=== PATIENT | female | born 1930 | race Caucasian/White ===

== ENCOUNTER 2016-08-21 15:12 | Emergency (ER) | payer MEDICARE ==
--- NOTE | 2016-08-21 16:42 | ED ORDER SUMMARY ---
..... Patient: IVIS LUCERO OrderSheet [facility] VisitID: [id number] [place] [address] 85y, F Registration Date/Time: 08/21/2016 ORDER SHEET Weight: 68.0 kg (stated) Allergies: Nitrofurantoin, Codeine, Demerol, Oxycodone, Penicillin, Sulfa Antibiotics GENERAL ORDERS: Suture Set-up: (16:04 08/21/2016 HBivens A.R.N.P.) (17:00 ASchmuck) Dress Wounds (16:04 08/21/2016 HBivens A.R.N.P.) (17:00 ASchmuck) MEDICATION ORDERS: Tdap IM 0.5 mL (NOW, per protocol) (15:43 08/21/2016 ASchmuck per protocol) (15:48 ASchmuck) Lidocaine Injection 1% plain (NOW) (16:04 08/21/2016 HBivens A.R.N.P.) (Ack 16:15 ASchmuck) (16:33 ASchmuck) IV FLUIDS: ORDER SHEET NOTES: [Electronically signed by Rosalba Medina (19:12 08/21/2016)] [Electronically signed by Netta Barry A.R.N.P. (20:45 08/21/2016)] [Electronically locked/signed by Rosalba Medina (19:12 08/21/2016)]
--- NOTE | 2016-08-21 16:42 | ED CLINICAL REPORT ---
Clinical Report - Physicians/Mid Levels [facility] [address] [place] [address] 08/21/2016 15:13 Patient: IVIS LUCERO Time Seen: 15:46; initial patient contact, initial documentation, patient care assumed. Arrived- By ambulance. Historian- patient. HISTORY OF PRESENT ILLNESS Chief Complaint: Injury to left leg. The injury happened just prior to arrival. Occurred at home. The patient sustained a laceration from a sharp edge (has cast iron or steel cat statue, hit leg on cat's ear, cutting leg). Patient is experiencing mild pain. Patient denies injury to the head or neck. No other injury. REVIEW OF SYSTEMS The patient sustained a laceration. No swelling, tingling, weakness, numbness or suspected foreign body. She has no pain on weight bearing. All systems otherwise negative, except as recorded above. PAST HISTORY See nurses notes. ( PROBLEMS: Hypercholesterolemia. Diabetic neuropathy. Degenerative Joint Disease. Mild cognitive disorder. Acquired hypothyroidism. Hyperthyroidism. Fall. Hyperlipidemia. Enuresis. Diabetes Mellitus Type 2. Hypertension. Parkinson's Disease. --15:27 Rosalba Medina. ADDITIONAL SURGERIES: Appendectomy. Cataract Surgery. --15:27 Rosalba Medina.). SOCIAL HISTORY Never smoker. Occasional alcohol use. No drug use. No recent travel. Is a local resident. Resides in an assisted living center. FAMILY HISTORY No significant family medical history. ADDITIONAL NOTES The nursing notes have been reviewed with agreement regarding the chief complaint, HPI, ROS, PMH and patient medications and allergies. PHYSICAL EXAM Vital Signs: 08/21/2016 15:29 BP: 143/85. HR: 89. RR: 14. O2 saturation: 98%. Temp: 97.4 F. Have been reviewed as normal and appear to be correct. Appearance: Alert. Oriented X3. No acute distress. Head: Head atraumatic. Eyes: Pupils equal, round and reactive to light. Eyes normal inspection. Neck: Normal inspection. Neck supple. C-spine non-tender. Respiratory: No respiratory distress. Back: Normal inspection. No tenderness. ROM normal. Skin: Skin intact. Skin warm and dry. Normal skin color. Normal skin turgor. Extremities: Left leg: mild tenderness and subcutaneous laceration greater than 5.0 cm located in the lateral aspect of lower leg. SEE LACERATION PROCEDURE NOTE #1. Neurovascular intact distally. No erythema, swelling, abrasion, ecchymosis or puncture wound. No foreign body or deformity. No limitation of weight bearing. Lower extremity exam otherwise negative. Extremities otherwise negative. Neuro, Vascular and Tendons: Vascular status intact. Sensation intact. Motor intact. Tendon function intact. Gait: Normal gait. (pt walks with assistance). Neuro: Oriented X 3. No motor deficit. No sensory deficit. Note: isolated injury to lower leg. PROGRESS AND PROCEDURES Laceration Repair: Location: left leg. Length: 7 cm. Complexity: simple (local anesthesia used and sutured). Wound depth/shape- curved, subcutaneous and linear and involving fascia. Wound is clean. No contamination, foreign body or contused tissue present. No tissue loss. Distal neuro/vascular/tendon status normal. Tendon not examined. No tendon deficit or laceration or tendon injury. Local anesthesia provided using 1% lidocaine (4 mL). Prepped with Betadine. Wound explored, cleansed, irrigated and examined to the base in bloodless field with normal saline. Wound not debrided. No foreign material removed. Closure of skin: interrupted 4-0 nylon (10 sutures). Post-procedure: she is stable and there are no complications. Bleeding is controlled and neuro-vascular status is intact distal to the wound. Clean dressing applied. (per nursing staff, see other notes). Tetanus immunization given. Estimated blood loss: 10 mL. Patient and family counseled in person regarding the patient's stable condition and diagnosis. Differential Diagnosis: Other possible considerations: leg lac, fb, skin avulsion, fx. Above considerations are based on history, physical exam and reassessment. Differential diagnosis was discussed with patient. Disposition: Discharged home in good and improved condition (16:42). Condition: good and stable. CLINICAL IMPRESSION Single deep laceration to the left lower leg.Treatment of laceration not delayed. No infection or foreign body present. INSTRUCTIONS Protect wound and keep wound area clean. Soak in warm soapy water twice daily. Apply neosporin twice daily. Sutures should be removed in twelve days. Warnings: TETANUS: You were given a tetanus shot during your visit. Make a note for future reference. GENERAL WARNINGS: Return or contact your physician immediately if your condition worsens or changes unexpectedly, if not improving as expected, or if other problems arise. Specifically return if problem worsens. Follow-up: Follow up with your doctor in about twelve days for suture removal and wound check. Call for an appointment. Summary of care provided to patient and family. Understanding of the discharge instructions verbalized by patient and family. (Electronically signed by Netta Barry A.R.N.P. 08/21/2016 20:45)
--- NOTE | 2016-08-21 16:42 | ED NURSING NOTES ---
Clinical Report - Nurses [facility] [address] [place] [address] 08/21/2016 15:13 Patient: IVIS LUCERO TRIAGE Triage time 15:Aug 21 2016. 15:11 08/21/16. --15:11 Rosalba Medina Acuity: LEVEL 4. Chief Complaint: INJURY TO THE LEFT LEG. 15:29 08/21/16. Alert. No acute distress. SEPSIS SCREEN: Sepsis Screen. Negative (no infection suspected/documented). RK COMA SCORE: Rk Coma Scale: 15- eyes open spontaneously (4); best verbal response- oriented x 4 (5); best motor response- obeys commands (6). --15:29 Rosalba Medina 15:29 08/21/16. BP: 143/85. HR: 89. RR: 14. O2 saturation: 98%. Temp: 97.4 F. Pain level now 10. --15:29 Rosalba Medina. Weight: 68 kg stated. Height/Length: 64 inches Per Patient. BMI: 25.8. --15:27 Rosalba Medina. Medications Carbidopa-Levodopa Oral 25/100 mg, 3x a day (also 1/2 of a 25/100 2xdaily. ER 25/100 tab at HS). --15:15 Rosalba Medina Amantadine HCl Oral 100 mg, daily. --15:15 Rosalba Medina AmLODIPine Besylate Oral 5 mg, daily. --15:15 Rosalba Medina Aspir-81 Oral. --15:15 Rosalba Medina Azilect Oral (Tablet 1 mg), daily. --15:16 Rosalba Medina Calcitonin ([place]) Nasal, daily. --15:16 Rosalba Medina Cranberry Oral. --15:16 Rosalba Medina Docusate Calcium Oral 100 mg, daily. --15:16 Rosalba Medina Glucosamine Oral (Capsule 500 mg) 3 capsules, daily. --15:17 Rosalba Medina Lantus Subcutaneous 7 units, 2x a day. --15:18 Rosalba Medina Levothyroxine Sodium Oral 75 mcg, daily. --15:18 Rosalba Medina Lisinopril Oral 20 mg, daily. --15:18 Rosalba Medina MetFORMIN HCl Oral (Tablet 1000 mg) 1 tablet, 2x a day. --15:18 Rosalba Medina Nystop External. --15:19 Rosalba Medina Polyethylene Glycol 3350 Oral. --15:19 Rosalba Medina Cetirizine HCl Oral 10 mg, at bedtime. --15:21 Rosalba Medina Tylenol Oral, PRN. --15:21 Rosalba Medina Antacid Oral. --15:21 Rosalba Medina Benzonatate Oral 100 mg, 3x a day as needed. --15:22 Rosalba Medina Bisac-Evac Rectal (Suppository 10 mg), daily as needed. --15:22 Rosalba Medina Loperamide HCl Oral. --15:22 Rosalba Medina. Medication/allergy information source: the patient's fpc record. --15:29 Rosalba Medina. Allergies Nitrofurantoin.(nausea, vomiting) (abd pain) --15:23 Rosalba Medina Codeine. ("makes ill") --15:23 Rosalba Medina Demerol.(hives) --15:23 Rosalba Medina Oxycodone.(nausea) --15:24 Rosabla Medina Penicillin.(hives) --15:24 Rosalba Medina Sulfa Antibiotics.(hives) --15:24 Rosalba Medina. History Arrived by EMS. Historian: EMS and patient. Primary physician (Ayde). This occurred just prior to arrival. The patient sustained a laceration. ( EMS reports that patient was walking and hit her leg against a porcelain figure. EMS placed dressing on lower leg. No LOC, no neck/back pain, no fall.). The patient has had trouble walking. No numbness, tingling, weakness, neck pain or back pain. Treatment ENVIRONMENTAL AIDE: See EMS report. PAST MEDICAL HX: Diabetes mellitus. Hypertension. Tetanus status: unknown. SOCIAL HX: Never smoker. Alcohol use; consumes one wine occasionally. No drug use. NUTRITIONAL RISK ASSESSMENT: The nutritional risk assessment revealed no deficiencies. FUNCTIONAL ASSESSMENT: Functional assessment: no impairments noted. LEARNING NEEDS ASSESSMENT: The learning needs assessment revealed no barriers. FALL RISK ASSESSMENT: Fall risk assessment completed. Risk factors identified include patient age greater than 65 years, history of fall and impairment of mobility. Fall interventions initiated. Patient placed on stretcher. Side rails up x2. Brakes on Bed in low position. Call light in reach of patient. Instructed not to get up without assistance. SKIN INTEGRITY ASSESSMENT: Skin integrity risk assessment completed. No skin integrity risk identified. --15:29 Rosalba Medina. PROBLEMS: Hypercholesterolemia. Diabetic neuropathy. Degenerative Joint Disease. Mild cognitive disorder. Acquired hypothyroidism. Hyperthyroidism. Fall. Hyperlipidemia. Enuresis. Diabetes Mellitus Type 2. Hypertension. Parkinson's Disease. --15:27 Rosalba Medina. ADDITIONAL SURGERIES: Appendectomy. Cataract Surgery. --15:27 Rosalba Medina. Assessment The patient states feels the same. --15:29 Rosalba Medina. Interventions ID band on patient. --15:29 Rosalba Medina. PHYSICAL ASSESSMENT 15:32 08/21/16. To room via stretcher. GENERAL / NEURO / PSYCH: Oriented X 4. Alert. Appears in no acute distress. EXTREMITIES: Bilateral 3+ edema of the lower extremities involving both feet, both ankles and both lower legs. pt reports this is normal. Capillary refill is less than 2 seconds in the extremities. Extremity pulses are within normal limits. Extremities exhibit normal ROM. Neuro-vascular status intact to the extremity. Left leg: tenderness and deep 5.0 cm laceration with controlled bleeding. SKIN: Skin is warm and dry. Single laceration. --15:32 Rosalba Medina. NURSING PROGRESS NOTES 15:32 08/21/16. The plan of care for this patient has been created. Cold pack applied. Extremity elevated. Neuro-vascular extremity check. Reassurance given. Two patient identifiers checked. Call light placed in reach. Side rails up x 2. Bed placed in lowest position. Brakes of bed on. Patient ready for evaluation- chart flagged and ED physician and DUTY ENGINEER notified. --15:32 Rosalba Medina 15:48 08/21/2016 TDAP IM 0.5 mL given. (Lot#: [id number], expiration date: 07/28/2018, Fastener Technologist: sanofi pasteur). Given in the right deltoid. Allergies verified and confirmed 5 rights. Vaccine information statement provided to the patient. --15:48 Rosalba Medina 16:18 08/21/2016 Lidocaine Injection Injectable 1 % given. (given to DUTY ENGINEER). --16:33 Rosalba Medina Applied bulky dressing consisting of 4x4 gauze, following the application of antibiotic ointment (bacitracin). Secured with kerlix. --17:01 Rosalba Medina. DISPOSITION / DISCHARGE 17:08/21/16. Departure time: 17:Aug 21 2016. Condition at departure: improved. The goals identified in the patient's plan of care were met. No learning barriers present. Discharge instructions provided and reviewed with the patient and family. Reviewed warnings (Family verbalized awareness of warning s/sx listed in dc paperwork). Treatments reviewed. Reviewed referral to a primary care physician for followup. Patient verbalized understanding. Written instructions provided in Swedish. The patient was discharged by the nurse practitioner. She was discharged home and accompanied by family. She left the Emergency Department in a wheelchair and via private vehicle. Family member driving. FALL RISK ASSESSMENT: Fall risk assessment completed. No fall risk identified. --17:02 Rosalba Medina 17:01 08/21/16. BP: 138/60. HR: 94. RR: 15. O2 saturation: 99%. Temp: 97.4 F. Pain level now: 0/10. --17:02 Rosalba Medina. Locked/Released at 08/21/2016 19:12 by Rosalba Medina,
--- NOTE | 2016-08-21 16:42 | ED NURSING NOTES ---
Clinical Report - Nurses [facility] [address] [place] [address] 08/21/2016 15:13 Patient: IVIS LUCERO TRIAGE Triage time 15:Aug 21 2016. 15:11 08/21/16. --15:11 Rosalba Medina Acuity: LEVEL 4. Chief Complaint: INJURY TO THE LEFT LEG. 15:29 08/21/16. Alert. No acute distress. SEPSIS SCREEN: Sepsis Screen. Negative (no infection suspected/documented). RK COMA SCORE: Rk Coma Scale: 15- eyes open spontaneously (4); best verbal response- oriented x 4 (5); best motor response- obeys commands (6). --15:29 Rosalba Medina 15:29 08/21/16. BP: 143/85. HR: 89. RR: 14. O2 saturation: 98%. Temp: 97.4 F. Pain level now 10. --15:29 Rosalba Medina. Weight: 68 kg stated. Height/Length: 64 inches Per Patient. BMI: 25.8. --15:27 Rosalba Medina. Medications Carbidopa-Levodopa Oral 25/100 mg, 3x a day (also 1/2 of a 25/100 2xdaily. ER 25/100 tab at HS). --15:15 Rosalba Medina Amantadine HCl Oral 100 mg, daily. --15:15 Rosalba Medina AmLODIPine Besylate Oral 5 mg, daily. --15:15 Rosalba Medina Aspir-81 Oral. --15:15 Rosalba Medina Azilect Oral (Tablet 1 mg), daily. --15:16 Rosalba Medina Calcitonin ([place]) Nasal, daily. --15:16 Rosalba Medina Cranberry Oral. --15:16 Rosalba Mdeina Docusate Calcium Oral 100 mg, daily. --15:16 Rosalba Medina Glucosamine Oral (Capsule 500 mg) 3 capsules, daily. --15:17 Rosalba Medina Lantus Subcutaneous 7 units, 2x a day. --15:18 Rosalba Medina Levothyroxine Sodium Oral 75 mcg, daily. --15:18 Rosalba Medina Lisinopril Oral 20 mg, daily. --15:18 Rosalba Medina MetFORMIN HCl Oral (Tablet 1000 mg) 1 tablet, 2x a day. --15:18 Rosalba Medina Nystop External. --15:19 Rosalba Medina Polyethylene Glycol 3350 Oral. --15:19 Rosalba Medina Cetirizine HCl Oral 10 mg, at bedtime. --15:21 Rosalba Medina Tylenol Oral, PRN. --15:21 Rosalba Medina Antacid Oral. --15:21 Rosalba Medina Benzonatate Oral 100 mg, 3x a day as needed. --15:22 Rosalba Medina Bisac-Evac Rectal (Suppository 10 mg), daily as needed. --15:22 Rosalba Medina Loperamide HCl Oral. --15:22 Rosalba Medina. Medication/allergy information source: the patient's senior living record. --15:29 Rosalba Medina. Allergies Nitrofurantoin.(nausea, vomiting) (abd pain) --15:23 Rosalba Medina Codeine. ("makes ill") --15:23 Rosalba Medina Demerol.(hives) --15:23 Rosalba Medina Oxycodone.(nausea) --15:24 Rosalba Medina Penicillin.(hives) --15:24 Rosalba Medina Sulfa Antibiotics.(hives) --15:24 Rosalba Medina. History Arrived by EMS. Historian: EMS and patient. Primary physician (Ayde). This occurred just prior to arrival. The patient sustained a laceration. ( EMS reports that patient was walking and hit her leg against a porcelain figure. EMS placed dressing on lower leg. No LOC, no neck/back pain, no fall.). The patient has had trouble walking. No numbness, tingling, weakness, neck pain or back pain. Treatment AUTO HAULER: See EMS report. PAST MEDICAL HX: Diabetes mellitus. Hypertension. Tetanus status: unknown. SOCIAL HX: Never smoker. Alcohol use; consumes one wine occasionally. No drug use. NUTRITIONAL RISK ASSESSMENT: The nutritional risk assessment revealed no deficiencies. FUNCTIONAL ASSESSMENT: Functional assessment: no impairments noted. LEARNING NEEDS ASSESSMENT: The learning needs assessment revealed no barriers. FALL RISK ASSESSMENT: Fall risk assessment completed. Risk factors identified include patient age greater than 65 years, history of fall and impairment of mobility. Fall interventions initiated. Patient placed on stretcher. Side rails up x2. Brakes on Bed in low position. Call light in reach of patient. Instructed not to get up without assistance. SKIN INTEGRITY ASSESSMENT: Skin integrity risk assessment completed. No skin integrity risk identified. --15:29 Rosalba Medina. PROBLEMS: Hypercholesterolemia. Diabetic neuropathy. Degenerative Joint Disease. Mild cognitive disorder. Acquired hypothyroidism. Hyperthyroidism. Fall. Hyperlipidemia. Enuresis. Diabetes Mellitus Type 2. Hypertension. Parkinson's Disease. --15:27 Rosalba Medina. ADDITIONAL SURGERIES: Appendectomy. Cataract Surgery. --15:27 Rosalba Medina. Assessment The patient states feels the same. --15:29 Rosalba Medina. Interventions ID band on patient. --15:29 Rosalba Medina. PHYSICAL ASSESSMENT 15:32 08/21/16. To room via stretcher. GENERAL / NEURO / PSYCH: Oriented X 4. Alert. Appears in no acute distress. EXTREMITIES: Bilateral 3+ edema of the lower extremities involving both feet, both ankles and both lower legs. pt reports this is normal. Capillary refill is less than 2 seconds in the extremities. Extremity pulses are within normal limits. Extremities exhibit normal ROM. Neuro-vascular status intact to the extremity. Left leg: tenderness and deep 5.0 cm laceration with controlled bleeding. SKIN: Skin is warm and dry. Single laceration. --15:32 Rosalba Medina. NURSING PROGRESS NOTES 15:32 08/21/16. The plan of care for this patient has been created. Cold pack applied. Extremity elevated. Neuro-vascular extremity check. Reassurance given. Two patient identifiers checked. Call light placed in reach. Side rails up x 2. Bed placed in lowest position. Brakes of bed on. Patient ready for evaluation- chart flagged and ED physician and JUNIOR SYSTEMS ADMINISTRATOR notified. --15:32 Rosalba Medina 15:48 08/21/2016 TDAP IM 0.5 mL given. (Lot#: [id number], expiration date: 07/28/2018, Coal Trimmer: sanofi pasteur). Given in the right deltoid. Allergies verified and confirmed 5 rights. Vaccine information statement provided to the patient. --15:48 Rosalba Medina 16:18 08/21/2016 Lidocaine Injection Injectable 1 % given. (given to JUNIOR SYSTEMS ADMINISTRATOR). --16:33 Rosalba Medina Applied bulky dressing consisting of 4x4 gauze, following the application of antibiotic ointment (bacitracin). Secured with kerlix. --17:01 Rosalba Medina. DISPOSITION / DISCHARGE 17:08/21/16. Departure time: 17:Aug 21 2016. Condition at departure: improved. The goals identified in the patient's plan of care were met. No learning barriers present. Discharge instructions provided and reviewed with the patient and family. Reviewed warnings (Family verbalized awareness of warning s/sx listed in dc paperwork). Treatments reviewed. Reviewed referral to a primary care physician for followup. Patient verbalized understanding. Written instructions provided in Indonesian. The patient was discharged by the nurse practitioner. She was discharged home and accompanied by family. She left the Emergency Department in a wheelchair and via private vehicle. Family member driving. FALL RISK ASSESSMENT: Fall risk assessment completed. No fall risk identified. --17:02 Rosalba Medina 17:01 08/21/16. BP: 138/60. HR: 94. RR: 15. O2 saturation: 99%. Temp: 97.4 F. Pain level now: 0/10. --17:02 Rosalba Medina. Locked/Released at 08/21/2016 19:12 by Rosalba Medina,
--- NOTE | 2016-08-21 16:42 | ED ORDER SUMMARY ---
..... Patient: IVIS LUCERO OrderSheet [facility] VisitID: [id number] [place] [address] 85y, F Registration Date/Time: 08/21/2016 ORDER SHEET Weight: 68.0 kg (stated) Allergies: Nitrofurantoin, Codeine, Demerol, Oxycodone, Penicillin, Sulfa Antibiotics GENERAL ORDERS: Suture Set-up: (16:04 08/21/2016 HBivens A.R.N.P.) (17:00 ASchmuck) Dress Wounds (16:04 08/21/2016 HBivens A.R.N.P.) (17:00 ASchmuck) MEDICATION ORDERS: Tdap IM 0.5 mL (NOW, per protocol) (15:43 08/21/2016 ASchmuck per protocol) (15:48 ASchmuck) Lidocaine Injection 1% plain (NOW) (16:04 08/21/2016 HBivens A.R.N.P.) (Ack 16:15 ASchmuck) (16:33 ASchmuck) IV FLUIDS: ORDER SHEET NOTES: [Electronically signed by Rosalba Medina (19:12 08/21/2016)] [Electronically signed by Netta Barry A.R.N.P. (20:45 08/21/2016)] [Electronically locked/signed by Rosalba Medina (19:12 08/21/2016)]
--- NOTE | 2016-08-21 20:45 | ED MAR SUMMARY ---
..... Medication Administration Record [facility] [address] [place] [address] Patient: IVIS LUCERO Visit ID: [id number] 85y, F Weight: 68.0 kg Height/Length: 64 in BMI: 25.8 ALLERGIES: Sulfa Antibiotics, Penicillin, Oxycodone, Demerol, Codeine, Nitrofurantoin Given 15:48 08/21/2016 Rosalba Medina, Medication Administered: TDAP [IM], Dose: 0.5 mL IM. Medication Ordered: Tdap IM 0.5 mL (NOW, per protocol). Given 16:18 08/21/2016 Rosalba Medina, Medication Administered: LIDOCAINE [INJECTION], Dose: 1 % Injectable Injection. Medication Ordered: Lidocaine Injection 1% plain (NOW).
--- NOTE | 2016-08-21 20:45 | ED MAR SUMMARY ---
..... Medication Administration Record [facility] [address] [place] [address] Patient: IVIS LUCERO Visit ID: [id number] 85y, F Weight: 68.0 kg Height/Length: 64 in BMI: 25.8 ALLERGIES: Sulfa Antibiotics, Penicillin, Oxycodone, Demerol, Codeine, Nitrofurantoin Given 15:48 08/21/2016 Rosalba Medina, Medication Administered: TDAP [IM], Dose: 0.5 mL IM. Medication Ordered: Tdap IM 0.5 mL (NOW, per protocol). Given 16:18 08/21/2016 Rosalba Medina, Medication Administered: LIDOCAINE [INJECTION], Dose: 1 % Injectable Injection. Medication Ordered: Lidocaine Injection 1% plain (NOW).
--- NOTE | 2016-08-21 20:45 | ED DISCHARGE INSTRUCTIONS ---
Patient: IVIS LUCERO General Instructions [facility] VisitID: [id number] [place] [address] 85y, F Registration Date/Time: 08/21/2016 Single deep laceration to the left lower leg.Treatment of laceration not delayed. No infection or foreign body present. INSTRUCTIONS Protect wound and keep wound area clean. Soak in warm soapy water twice daily. Apply neosporin twice daily. Sutures should be removed in twelve days. Warnings: TETANUS: You were given a tetanus shot during your visit. Make a note for future reference. GENERAL WARNINGS: Return or contact your physician immediately if your condition worsens or changes unexpectedly, if not improving as expected, or if other problems arise. Specifically return if problem worsens. Follow-up: Follow up with your doctor in about twelve days for suture removal and wound check. Call for an appointment. Summary of care provided to patient and family. Understanding of the discharge instructions verbalized by patient and family. ADDITIONAL INFORMATION Laceration (All Closures) Alaceration is a cut through the skin. This will usually require stitches (sutures) or wade if it is deep. Minor cuts may be treated with a surgical tape closure orskin glue. Home care The following guidelines will help you care for your laceration at home: Extremity, face, or trunk wounds Keep the wound clean and dry. If a bandage was applied and it becomes wet or dirty, replace it. Otherwise, leave it in place for the first 24 hours. If stitches or wade were used, clean the wound daily. After removing the bandage, wash the area with soap and water. Use a wet cotton swab to loosen and remove any blood or crust that forms. The doctor may prescribe an antibiotic cream or ointment to prevent infection. Do not stop taking this medication until you have finished the prescribed course or the doctor tells you to stop. The doctor may also prescribe medications for pain. Follow the doctors instructions for taking these medications. You may remove the bandage to shower as usual after the first 24 hours, but do not soak the area in water (no swimming) until the stitches or wade are removed. If surgical tape was used, keep the area clean and dry. If it becomes wet, blot it dry with a towel. If skin glue was used, do not scratch, rub, or pick at the adhesive film. Do not place tape directly over the film. Do not apply liquid, ointment, or creams to the wound while the film is in place. Do not clean the wound with peroxide and do not apply ointments. Avoid activities that cause heavy sweating until the film has fallen off. Protect the wound from prolonged exposure to sunlight or tanning lamps. You may shower as usual but do not soak the wound in water (no baths or swimming). The film will fall off by itself in 510 days. Scalp wounds During the first two days, you may carefully rinse your hair in the shower to remove blood, glass or dirt particles. After two days, you may shower and shampoo your hair normally. Do not soak your scalp in the tub or go swimming until the stitches or wade have been removed. Talk with your doctor before applying any antibiotic ointment to the wound. Mouth wounds Eat soft foods to reduce pain. If the cut is inside of your mouth, clean by rinsing after each meal and at bedtime with a mixture of equal parts water and hydrogen peroxide (do not swallow!). Or, you can use a cotton swab to directly apply hydrogen peroxide onto the cut. Mouth wounds can be painful when eating. You may use an [id number] local numbing solution for pain relief. If this is not available, you may use any numbing solution for teething babies. You may apply this directly to the sores with a cotton-tip swab or with your finger. Follow-up care Follow up with your health care provider. Most skin wounds heal within ten days. Mouth and facial wounds heal within five days. However, even with proper treatment, a wound infection may sometimes occur. Therefore, you should check the wound daily for signs of infection listed below. Stitches should be removed from the face within five days; stitches and wade should be removed from other parts of the body within 714 days. If dissolving stitches were used in the mouth, these will fall out or dissolve without the need for removal. If tape closures were used, remove them yourself if they have not fallen off after 7 days. Ifskin glue was used, the film will fall off by itself in 510 days. When to seek medical care Get prompt medical attention if any of these occur: Bleeding not controlled by direct pressure Signs of infection, including increasing pain in the wound, increasing wound redness or swelling, or pus coming from the wound Fever of 100.4F (38C) or higher, or as directed by your health care provider Stitches or wade come apart or fall out or surgical tape falls off before 7 days Wound edges re-open Laceration, Extremity (Sutures, [place], Or Tape) A laceration is a cut through the skin. This will usually require stitches (sutures) or wade if it is deep. Minor cuts may be treated with surgical tape closures. Home care The following guidelines will help you care for your laceration at home: Keep the wound clean and dry. If a bandage was applied and it becomes wet or dirty, replace it. Otherwise, leave it in place for the first 24 hours, then change it once a day or as directed. If stitches or wade were used, clean the wound daily: After removing the bandage, wash the area with soap and water. Use a wet cotton swab to loosen and remove any blood or crust that forms. After cleaning, keep the wound clean and dry. Talk with your doctor before applying any antibiotic ointment to the wound. Reapply the bandage. You may remove the bandage to shower as usual after the first 24 hours, but do not soak the area in water (no swimming) until the stitches or wade are removed. If surgical tape closures were used, keep the area clean and dry. If it becomes wet, blot it dry with a towel. The doctor may prescribe an antibiotic cream or ointment to prevent infection. Do not stop taking this medication until you have finished the prescribed course or the doctor tells you to stop. The doctor may also prescribe medications for pain. Follow the doctors instructions for taking these medications. If you have chronic liver or kidney disease or ever had a stomach ulcer or GI bleeding, talk with your doctor before using these medicines. Follow-up care Follow up with your health care provider. Most skin wounds heal within ten days. However, an infection may sometimes occur despite proper treatment. Therefore, check the wound daily for the signs of infection listed below. Stitches and wade should be removed within 714 days. If surgical tape closures were used, you may remove them after 10 days, if they have not fallen off by then. Notify your doctor if you notice persistent numbness or weakness in the injured extremity. (Note:A radiologist will review any X-rays that were taken. We will notify you of any new findings that may affect your care.) When to seek medical care Get prompt medical attention if any of these occur: Increasing pain in the wound Redness, swelling, or pus coming from the wound Fever of 100.4F (38C) or higher, or as directed by your health care provider If stitches or wade come apart or fall out before your next appointment If the surgical tape closures fall off within seven days, or the wound edges re-open Bleeding not controlled by direct pressure Diphtheria Toxoid Adsorbed, Pertussis Vaccine, Acellular (Adsorbed), Tetanus Toxoid, Adsorbed Suspension for injection What is this medicine? DIPHTHERIA and TETANUS TOXOIDS; PERTUSSIS VACCINE (dif THEER ee uh and TET n us TOK soids; per TUS iss vak SEEN) is used to prevent diphtheria, tetanus, and pertussis infections. How should I use this medicine? This vaccine is for injection into a muscle. It is given by a health director of health care marketing. A copy of Vaccine Information Statements will be given before each vaccination. Read this sheet carefully each time. The sheet may change frequently. Talk to your overedge sewer regarding the use of this vaccine in children. While the DTP vaccine may be given to children ages 6 weeks to 7 years and the Tdap vaccine may be given to children at least 10 years old, precautions do apply. What side effects may I notice from receiving this medicine? Side effects that you should report to your doctor or health director of health care marketing as soon as possible: allergic reactions like skin rash, itching or hives, swelling of the face, lips, or tongue breathing problems fever of 103 degrees F or more flu-like symptoms inconsolable crying infection pain, tingling, numbness in the hands or feet seizures swelling of arm or leg that was injected unusually weak or tired Side effects that usually do not require immediate medical attention (report these side effects to your doctor or health director of health care marketing if they continue or are bothersome): fussy, irritable loss of appetite fever of 102 degrees F or less pain, tenderness, redness, swelling, or a 'knot' at site where injected vomiting What may interact with this medicine? immune globulin medicines that suppress your immune function like adalimumab, anakinra, infliximab medicines to treat cancer medicines that treat or prevent blood clots like warfarin, enoxaparin, and dalteparin steroid medicines like prednisone or cortisone What if I miss a dose? It is important not to miss your dose. Call your doctor or health director of health care marketing if you are unable to keep an appointment. Where should I keep my medicine? This drug is given in a hospital or clinic and will not be stored at home. What should I tell my health care provider before I take this medicine? They need to know if you have any of these conditions: blood disorders like hemophilia fever or infection immune system problems neurologic disease seizures an unusual or allergic reaction to vaccines, thimerosal, latex, other medicines, foods, dyes, or preservatives or trying to get breast-feeding What should I watch for while using this medicine? See your health care provider for all shots of this vaccine as directed. To have protection from infection, you must have 3 shots of this vaccine plus boosters as needed. Tell your doctor right away if you have any serious or unusual side effects after getting this vaccine. You have been given the following additional information: Laceration, All Laceration, Extrem (Suture, Staple, Or Tape) Diphtheria Toxoid Adsorbed, Pertussis Vaccine, Acellular (Adsorbed), Tetanus Toxoid, Adsorbed Suspension for injection (Electronically signed by Netta Barry A.R.N.P. 08/21/2016 20:45)
--- NOTE | 2016-08-21 20:45 | ED MED RECONCILIATION SUMMARY ---
Patient: IVIS LUCERO Medication Reconciliation Report [facility] VisitID: [id number] [place] [address] 85y, F Registration Date/Time: 08/21/2016 Weight: 68.0 kg Height/Length: 64 in. BMI: 25.8 ALLERGIES: Codeine, Demerol, Nitrofurantoin, Oxycodone, Penicillin, Sulfa Antibiotics The patient's Home Medications are listed below: THE FOLLOWING MEDICATIONS NEED TO BE RECONCILED: Amantadine HCl Oral 100 mg, daily AmLODIPine Besylate Oral 5 mg, daily Antacid Oral Aspir-81 Oral Azilect Oral (1 mg), daily Benzonatate Oral 100 mg, 3x a day Bisac-Evac Rectal (10 mg), daily Calcitonin ([place]) Nasal, daily Carbidopa-Levodopa Oral 25/100 mg, 3x a day, also 1/2 of a 25/100 2xdaily. ER 25/100 tab at HS Cetirizine HCl Oral 10 mg, at bedtime Cranberry Oral Docusate Calcium Oral 100 mg, daily Glucosamine Oral (500 mg) 3 capsules, daily Lantus Subcutaneous 7 units, 2x a day Levothyroxine Sodium Oral 75 mcg, daily Lisinopril Oral 20 mg, daily Loperamide HCl Oral MetFORMIN HCl Oral (1000 mg) 1 tablet, 2x a day Nystop External Polyethylene Glycol 3350 Oral Tylenol Oral, PRN The source(s) of the original Home Medication information: patient's senior living record The following Medications were given to the patient in the Emergency Department: TDAP [IM] IM 0.5 mL, administered: 08/21/2016 3:48:00 PM Lidocaine [Injection] Injection 1 %, administered: 08/21/2016 4:18:00 PM The following Medications were prescribed to the patient: None.
--- NOTE | 2016-08-21 20:45 | ED MED RECONCILIATION SUMMARY ---
Patient: IVIS LUCERO Medication Reconciliation Report [facility] VisitID: [id number] [place] [address] 85y, F Registration Date/Time: 08/21/2016 Weight: 68.0 kg Height/Length: 64 in. BMI: 25.8 ALLERGIES: Codeine, Demerol, Nitrofurantoin, Oxycodone, Penicillin, Sulfa Antibiotics The patient's Home Medications are listed below: THE FOLLOWING MEDICATIONS NEED TO BE RECONCILED: Amantadine HCl Oral 100 mg, daily AmLODIPine Besylate Oral 5 mg, daily Antacid Oral Aspir-81 Oral Azilect Oral (1 mg), daily Benzonatate Oral 100 mg, 3x a day Bisac-Evac Rectal (10 mg), daily Calcitonin ([place]) Nasal, daily Carbidopa-Levodopa Oral 25/100 mg, 3x a day, also 1/2 of a 25/100 2xdaily. ER 25/100 tab at HS Cetirizine HCl Oral 10 mg, at bedtime Cranberry Oral Docusate Calcium Oral 100 mg, daily Glucosamine Oral (500 mg) 3 capsules, daily Lantus Subcutaneous 7 units, 2x a day Levothyroxine Sodium Oral 75 mcg, daily Lisinopril Oral 20 mg, daily Loperamide HCl Oral MetFORMIN HCl Oral (1000 mg) 1 tablet, 2x a day Nystop External Polyethylene Glycol 3350 Oral Tylenol Oral, PRN The source(s) of the original Home Medication information: [facility]'s [facility] record The following Medications were given to the patient in the Emergency Department: TDAP [IM] IM 0.5 mL, administered: 08/21/2016 3:48:00 PM Lidocaine [Injection] Injection 1 %, administered: 08/21/2016 4:18:00 PM The following Medications were prescribed to the patient: None.
== END 2016-08-21 17:02 | disposition home or self-care (01) ==
LOC: ED SRH 15:12
DX: S81.812A Laceration without foreign body, left lower leg, initial encounter (principal); W22.8XXA Striking against or struck by other objects, initial encounter; Y93.9 Activity, unspecified; Y92.009 Unspecified place in unspecified non-institutional (private) residence as the place of occurrence of the external cause; Y99.9 Unspecified external cause status; E11.9 Type 2 diabetes mellitus without complications; I10 Essential (primary) hypertension